=== PATIENT | female | born 1990 | race Native Hawaiian/Other Pacific Islander ===

== ENCOUNTER 2019-10-13 11:02 | Emergency (ER) | payer OTHER ==
[~2019-10-13] VITALS: Ht 177.8 cm; Wt 95.3 kg
[2019-10-13 11:11] VITALS: TEMP 97.5
[2019-10-13 11:55] LABS: PLATELET COUNT 247 K/uL (152-353)
[2019-10-13 12:02] LABS: POTASSIUM 3.4 mmol/L (3.6-5.2)
[2019-10-13 13:42] VITALS: BP 118/82
== END 2019-10-13 13:49 | disposition home or self-care (01) ==
LOC: ED 11:02
PROVIDERS: Hospitalist
DX: N39.0 Urinary tract infection, site not specified (principal); E86.0 Dehydration; R11.2 Nausea with vomiting, unspecified
CPT/HCPCS: 80048; 81000; 81025; 85027; 87086; 87088; 87502; 87651; 96360; 96365; 96368; 99284; J1956

== ENCOUNTER 2021-03-02 09:00 | Outpatient (CLI) | payer OTHER | END 2021-03-02 20:32 | disposition home or self-care (01) | LOC: US 09:00 | PROVIDERS: ATTEND Physician Assistant | DX: R10.11 Right upper quadrant pain (principal); R11.0 Nausea ==

== ENCOUNTER 2021-04-19 14:22 | Emergency (ER) | payer OTHER ==
[~2021-04-19] VITALS: Ht 177.8 cm; Wt 122.5 kg
[2021-04-19 14:32] VITALS: TEMP 98.9
[2021-04-19 16:35] VITALS: BP 108/67
== END 2021-04-19 16:35 | disposition home or self-care (01) ==
LOC: ED 14:22
DX: J06.9 Acute upper respiratory infection, unspecified (principal); Z20.822 Contact with and (suspected) exposure to COVID-19
CPT/HCPCS: 87635; 87651; 99283; U0003

== ENCOUNTER 2022-01-11 14:44 | Emergency (ER) | payer OTHER ==
[~2022-01-11] VITALS: Ht 177.8 cm; Wt 122.5 kg
[2022-01-11 14:47] VITALS: TEMP 97.9
[2022-01-11 15:12] LABS: PLATELET COUNT 261 K/uL (152-353)
[2022-01-11 15:19] LABS: POTASSIUM 4.5 mmol/L (3.6-5.2)
[2022-01-11 18:00] VITALS: BP 128/102
== END 2022-01-11 18:10 | disposition home or self-care (01) ==
LOC: ED 14:44
PROVIDERS: Emergency Medicine
DX: I10 Essential (primary) hypertension (principal); F41.8 Other specified anxiety disorders; F17.290 Nicotine dependence, other tobacco product, uncomplicated
CPT/HCPCS: 80053; 84484; 85027; 85610; 85730; 93005; 96374; 96375; 99284; J3490

== ENCOUNTER 2022-03-13 10:02 | Observation (INO) | payer OTHER ==
[~2022-03-13] VITALS: Ht 175.3 cm; Wt 121.4 kg
[2022-03-13] VITALS (9 sets, daily range): BP systolic 118–147; BP diastolic 83–106; TEMP 98.5–98.8; Ht 175.3 cm; Wt 121.4 kg
[2022-03-13 10:37] LABS: PLATELET COUNT 250 K/uL (152-353)
[2022-03-13 10:51] LABS: POTASSIUM 3.1 mmol/L (3.6-5.2)
[2022-03-14] VITALS: BP 119/86; TEMP 98.3
[2022-03-14 04:00] VITALS: BP 141/98; TEMP 98.2
[2022-03-14 05:56] LABS: PLATELET COUNT 152 K/uL (152-353)
[2022-03-14 06:25] LABS: POTASSIUM 3.7 mmol/L (3.6-5.2)
[2022-03-14 08:00] VITALS: BP 133/95; TEMP 98.2
[2022-03-14] MEDS ORDERED: PROMETHAZINE HY25 MG PO (11:00)
[2022-03-14 12:00] VITALS: BP 130/80; TEMP 98.3
== END 2022-03-14 13:30 | disposition home or self-care (01) ==
LOC: ED 10:02 → MED/SURG 13:46
PROVIDERS: Family Medicine; ADMIT Internal Medicine; ATTEND Internal Medicine
DX: K70.0 Alcoholic fatty liver (principal); R11.2 Nausea with vomiting, unspecified; R10.84 Generalized abdominal pain; E86.0 Dehydration
CPT/HCPCS: 36415; 80053; 80074; 80307; 81000; 81025; 82150; 82550; 83690; 83735; 84100; 84443; 84484; 85027; 93005; 96360; 96361; 96367; 96374; 96375; 96376; 99220; 99284; G0378; J2175; J2270; J2405; J2543; J2550; J3490

== ENCOUNTER 2023-01-30 13:18 | Emergency (ER) | payer OTHER ==
[~2023-01-30] VITALS: Ht 180.3 cm; Wt 123.8 kg
[~2023-01-30 13:18] MED LIST: PROMETHAZINE HY25 MG PO
[2023-01-30 13:23] VITALS: TEMP 98.1
[2023-01-30 15:25] VITALS: BP 125/86
== END 2023-01-30 15:25 | disposition home or self-care (01) ==
LOC: ED 13:18
DX: M54.30 Sciatica, unspecified side (principal); S39.012A Strain of muscle, fascia and tendon of lower back, initial encounter
CPT/HCPCS: 81025; 96372; 99283; J1100; J1885